=== PATIENT | male | born 1970 | race African-American/Black ===

== ENCOUNTER 2018-10-13 11:02 | Emergency (ER) | payer MEDICAID ==
[~2018-10-13] VITALS: Ht 180.3 cm; Wt 77.6 kg
[2018-10-13 11:17] VITALS: BP 149/92
--- NOTE | 2018-10-13 11:26 | NUR ---
DR ZAMAN AT BEDSIDE FOR EVAL.
== END 2018-10-13 11:45 | disposition home or self-care (01) ==
LOC: ER 11:07
DX: R22.0 Localized swelling, mass and lump, head (principal); K02.9 Dental caries, unspecified; F30.9 Manic episode, unspecified; Z88.0 Allergy status to penicillin

== ENCOUNTER 2020-10-16 00:52 | Emergency (ER) | payer MEDICAID ==
[~2020-10-16] VITALS: Ht 177.8 cm; Wt 77.1 kg
--- NOTE | 2020-10-16 01:20 | NUR ---
IV ESTASBLISHED, BLOOD WORK COLLECTED, SENT TO LAB.
[2020-10-16 01:27] LABS: BASOPHILS # (AUTO) 0.1 /CMM (0.0-0.2); BASOPHILS % (AUTO) 0.8 % (0.0-2.0); EOSINOPHILS % (AUTO) 1.2 % (0.0-6.0); HEMATOCRIT 43 % (39-51); HEMOGLOBIN 13.8 g/dL (13.5-17.5); MEAN CORPUSCULAR HGB CONC 32 g/dl (31.0-36.0); MEAN CORPUSCULAR VOLUME 83 fL (80-96); MONOCYTES # (AUTO) 0.7 /CMM (0.1-1.30); MONOCYTES % (AUTO) 7.4 % (2.0-12.0); NEUTROPHILS # (AUTO) 5.5 /CMM (1.8-8.9); NEUTROPHILS % (AUTO) 58.6 % (43.0-81.0); PLATELET COUNT (AUTO) 249 /CMM (150-450); RED BLOOD CELL COUNT(AUTO) 5.11 MIL/uL (4.5-6.0); WHITE BLOOD COUNT (AUTO) 9.4 K/uL (4.3-11.0)
[2020-10-16 01:47] LABS: CALCIUM, SERUM 8.6 mg/dL (8.5-10.1); CREATININE 1.2 mg/dL (0.6-1.3); POTASSIUM 3.5 mmol/L (3.5-5.1)
[2020-10-16] MEDS ORDERED: IV NS 0.9% 250 ML IV ONE (01:52)
[2020-10-16] MEDS ORDERED: IOHEXOL-300 100 ML VIAL IV ONE (01:52)
[2020-10-16] MEDS ORDERED: CLIN300C12 PO (02:38)
--- NOTE | 2020-10-16 02:41 | NUR ---
Patient discharged to home in stable condition. Written and verbal after care instructions given. Patient verbalizes understanding of instruction and RX. Pt ambulated out of ED. VSS.
--- NOTE | 2020-10-16 02:41 | NUR ---
IV removed. Catheter intact and site benign. Pressure and 4x4 applied to site. No bleeding noted.
[2020-10-16 02:47] VITALS: BP 128/73
== END 2020-10-16 02:47 | disposition home or self-care (01) ==
LOC: ER 00:54
DX: K11.20 Sialoadenitis, unspecified (principal); I10 Essential (primary) hypertension; Z88.0 Allergy status to penicillin
CPT/HCPCS: 36415; 70487; 70491; 80048; 85025; 99285; J7050; Q9967